=== PATIENT | male | born 1930 | race Caucasian/White ===

== ENCOUNTER 2016-06-26 12:45 | Outpatient (RCR) | payer OTHER ==
[~2016-06-26 12:45] MED LIST: ADVIL200 MG ORAL; BISACODYL5 MG ORAL; CELEBREX200 MG ORAL; LASIX20 M1 ORAL; PACERONE200 MG ORAL; SIMVASTATIN10 MG ORAL; SINEMET 25/1001 EA ORAL; TAMSULOSIN HCL0.4 MG ORAL; TYLENOL #21 EA ORAL; VERAPAMIL ER120 MG PO; VITAMIN B12; XARELTO10 MG ORAL
== END 2016-07-13 | disposition home or self-care (01) ==
LOC: PTY 12:45
DX: G20 Parkinson's disease (principal); I48.1 Persistent atrial fibrillation

== ENCOUNTER 2016-07-15 09:30 | Outpatient (RCR) | payer OTHER | END 2016-08-13 | disposition home or self-care (01) | LOC: PTY 09:30 | DX: G20 Parkinson's disease (principal); I48.1 Persistent atrial fibrillation ==

== ENCOUNTER 2016-09-05 11:00 | Outpatient (RCR) | payer OTHER | END 2016-09-12 | disposition home or self-care (01) | LOC: PTY 11:00 | DX: M75.101 Unspecified rotator cuff tear or rupture of right shoulder, not specified as traumatic (principal); G20 Parkinson's disease; I48.1 Persistent atrial fibrillation ==

== ENCOUNTER 2016-09-19 11:00 | Outpatient (RCR) | payer OTHER | END 2016-10-13 | disposition home or self-care (01) | LOC: PTY 11:00 | DX: G20 Parkinson's disease (principal); M75.101 Unspecified rotator cuff tear or rupture of right shoulder, not specified as traumatic; I48.1 Persistent atrial fibrillation | CPT/HCPCS: 97110; 97140; G0283 ==

== ENCOUNTER 2016-10-30 10:00 | Outpatient (RCR) | payer OTHER | END 2016-11-13 | disposition home or self-care (01) | LOC: PTY 10:00 | DX: M75.101 Unspecified rotator cuff tear or rupture of right shoulder, not specified as traumatic (principal); G20 Parkinson's disease; I48.1 Persistent atrial fibrillation ==

== ENCOUNTER 2016-12-04 15:00 | Outpatient (RCR) | payer OTHER | END 2016-12-13 | disposition home or self-care (01) | LOC: PTY 15:00 | DX: G20 Parkinson's disease (principal); I48.1 Persistent atrial fibrillation ==

== ENCOUNTER 2017-01-08 11:00 | Outpatient (RCR) | payer OTHER | END 2017-01-13 | disposition home or self-care (01) | LOC: PTY 11:00 | DX: G20 Parkinson's disease (principal) ==